=== PATIENT | female | born 1960 | race African-American/Black ===

== ENCOUNTER 2018-04-24 09:45 | Emergency (ER) | payer SELFPAY ==
--- NOTE | 2018-04-24 09:58 | PDOC ---
History of Present Illness - General Chief Complaint: Chest Pain Stated Complaint: FEVER & CHEST PAIN Time Seen by Provider: 04/24/18 09:57 - History of Present Illness Initial Comments: 04/24/18 14:43 Chief complaint: Chest pain History of present illness: Patient complains of heavy feeling in the center of her chest, substernal region, present for the last several days while lying in bed before falling asleep. No radiation of the pain. Patient takes long walks and climb stairs without pain. The pain is not pleuritic and there is no fever or cough. Review of systems: No nausea, vomiting, diarrhea, abdominal pain, URI symptoms, sore throat, cough, urinary tract symptoms, vaginal bleeding or discharge, visual or focal neurologic symptoms, unsteadiness of gait, diaphoresis, lightheadedness, or dizziness. Remainder systems reviewed and found to be negative Past medical history: Patient is a healthy female with no active medical or surgical problems. Social history: Lives in [facility], visiting relatives since January, no tobacco alcohol or nonprescription drugs, no other travel, no exposure to tuberculosis or other known infectious diseases in the past. Family history: Reviewed and noncontributory Physical exam: Alert and oriented well-developed well-nourished no acute distress cheerful and cooperative. Denies pain at present Temperature 100.7, declining to 100.1, remainder vital signs normal PERRLA, fundi benign, ENT clear Neck supple without bruit mass or nodes Chest clear with full breath sounds throughout bilaterally. No wheezes rales or rhonchi. No chest wall or rib cage tenderness or deformity CV S1 and S2 normal without murmur or gallop pulses full and symmetric no JVD or edema no bruits 100 and regular Abdomen soft nontender without mass or organomegaly. No CVAT Neurological intact Extremities no CCE Skin clear, no rash, adequate turgor and wet mucous membranes Impression: Patient is awake from home, missing her family in [place], admits mild anxiety. The chest pain is most likely due to anxiety, especially since it is present only upon lying down to sleep at night. Physical exam is normal. Also low-grade fever is present without any obvious sign of infection. Plan: EKG and enzymes, CBC chemistries, urinalysis, urine culture, blood cultures, and further medical evaluation depending on results Past History - Past Medical History Allergies/Adverse Reactions: Allergies Allergy/AdvReac Type Severity Reaction Status Date / Time No Known Allergies Allergy Verified 04/24/18 09:58 Home Medications: Ambulatory Orders NK [No Known Home Medication] 04/24/18 ED Treatment Course - LABORATORY CBC & Chemistry Diagram: 04/24/18 10:40 04/24/18 10:40 Medical Decision Making - Medical Decision Making 04/24/18 14:49 EKG: Normal Chest x-ray: Clear Urinalysis: 0-2 white cells, 5-8 red cells, positive blood. Urine culture pending. Unlikely that this is an infection. Further urologic evaluation probably necessary CBC and chemistries show normal white blood count, and only significant abnormality is potassium 3.0 High potassium diet recommended To check urine culture in 2 days, and if negative, follow-up with urologist for further evaluation of hematuria No obvious source of fever, no sepsis. Monitor temperature and evaluated again in one week if low-grade fever persists. Fully ambulatory in no pain or other distress upon discharge with son to follow-up as recommended *DC/Admit/Observation/Transfer Diagnosis at time of Disposition: Musculoskeletal pain Hematuria Qualifiers: Hematuria type: unspecified type Qualified Code(s): R31.9 - Hematuria, unspecified - Discharge Dispostion Disposition: HOME Condition at time of disposition: Stable Decision to Admit order: No - Referrals Referrals: Robert Sousa MD [Staff Physician] - - Patient Instructions Printed Discharge Instructions: DI for Atypical Chest Pain, DI for Hematuria, High-Potassium Diet Additional Instructions: There is a small amount of blood in the urine. This could be a sign of infection , or other kidney disease. Check the urine culture which will be available in one to 2 days. If there is no infection, consultation with a kidney specialist or urologist will be necessary to determine the cause of the bloody urine. Pain in the chest does not appear to be related to the heart or lungs. It may be muscular or related to minor nervousness or anxiety. If it persists, consult primary care physician for further evaluation and treatment Potassium is low. Supplement the diet with potassium rich foods. - Post Discharge Activity
[2018-04-24 10:40] LABS: PH,URINE 5.5 (4.5-8); URINE APPEARANCE Clear; URINE BILIRUBIN Negative (NEGATIVE); URINE GLUCOSE (UA) Negative (NEGATIVE); URINE KETONE Negative (NEGATIVE); URINE LEUK ESTERASE Negative (NEGATIVE); URINE NITRITE Negative (NEGATIVE); URINE PROTEIN Trace (NEGATIVE); URINE UROBILINOGEN 0.2 (0.2-1.0)
[2018-04-24 10:42] LABS: URINE BLOOD 2+ (NEGATIVE); URINE COLOR AMBER
[2018-04-24 10:48] VITALS: BMI 25.7
[2018-04-24 11:08] LABS: BASO % 0.2 % (0-2.0); EOS % 0.1 % (0-4.5); HEMATOCRIT 36.9 % (32.4-45.2); HEMOGLOBIN 12.7 GM/dl (10.7-15.3); LYMPH % 10.5 % (8-40); MCH 30.2 pg (25.7-33.7); MCHC 34.5 g/dl (32.0-36.0); MEAN CELL VOLUME 87.7 fl (80-96); MEAN PLT VOLUME 8.8 fl (7.5-11.1); MONO % 9.5 % (3.8-10.2); NEUT % 79.7 % (42.8-82.8); PLATELET COUNT 212 K/MM3 (134-434); RBC 4.21 M/mm3 (3.60-5.2); RDW 13.6 % (11.6-15.6); WHITE BLOOD COUNT 5.5 K/mm3 (4.0-10.8)
[2018-04-24] MEDS ORDERED: SODIUM CHLORIDE 1,000 ML IV STA (11:17)
[2018-04-24 11:26] VITALS: BP 153/80; PULSE 86; TEMP 100.1
[2018-04-24 11:27] LABS: ALBUMIN 3.6 g/dl (3.5-5.0); ALK PHOS 81 U/L (32-92); ANION GAP 11 (8-16); BILIRUBIN,TOTAL 0.8 mg/dl (0.2-1.0); BLOOD UREA NITROGEN 9 mg/dl (7-18); CALCIUM 8.7 mg/dl (8.4-10.2); CHLORIDE 99 mmol/L (98-107); CO2 25 mmol/L (22-28); CREATININE 0.8 mg/dl (0.6-1.3); GLUCOSE,RANDOM 107 mg/dl (74-106); SGOT/AST 55 U/L (10-42); SGPT/ALT 35 U/L (10-40); SODIUM 135 mmol/L (136-145); TOT PROT 6.7 g/dl (6.4-8.3)
[2018-04-24 11:43] LABS: URINE WBC 0-2 (0-5)
--- NOTE | 2018-04-26 17:49 | EKG ---
Test Reason : Blood Pressure : / mmHG Vent. Rate : 103 BPM Atrial Rate : 103 BPM P-R Int : 166 ms QRS Dur : 096 ms QT Int : 348 ms P-R-T Axes : 067 050 042 degrees QTc Int : 455 ms SINUS TACHYCARDIA POSSIBLE LEFT ATRIAL ENLARGEMENT BORDERLINE ECG NO PREVIOUS ECGS AVAILABLE Confirmed by APARNA DELACRUZ, SHAR ([id number]) on 04/26/2018 5:49:14 PM Referred By: BRAYDEN JEFF Confirmed By:SHAR BRAUN MD
--- NOTE | 2018-04-26 23:18 | PDOC ---
Patient Follow-up (Call Back) - Post ED Follow - Up Condition at time of discharge: Stable Disposition at time of original discharge: HOME - Disposition Additional Instructions/Notes: Message was left at patient's callback number ([phone]) by earlier today to call back for lab results. Urine culture and sensitivity was found to have no growth. Discharge instructions for patient was for the patient to follow-up with urologist if the culture and sensitivity of the urine was negative. Approximately one half hour after message was left (approximately 7: 30 PM) patient's son returned call. Lab result discussed with the son. Since the [place] and does not have any insurance, son will apply for insurance and follow-up with urologist as per your insurance plan. If there is any interim problems, the patient should return to the ER.
== END 2018-04-24 12:06 | disposition home or self-care (01) ==
LOC: FER 09:45
CPT/HCPCS: 36415; 71046-TC-FY; 80053; 81003; 81015; 82550; 84484; 85025; 87040; 87086; 93005; 99284-25; J7030

== ENCOUNTER 2018-06-14 12:17 | Emergency (ER) | payer SELFPAY ==
--- NOTE | 2018-06-14 12:26 | PDOC ---
History of Present Illness - General Chief Complaint: Pain, Acute Stated Complaint: r wrist pain x 2 mnths Time Seen by Provider: 06/14/18 12:25 Past History - Past Medical History Allergies/Adverse Reactions: Allergies Allergy/AdvReac Type Severity Reaction Status Date / Time No Known Allergies Allergy Verified 06/14/18 12:18 Home Medications: Ambulatory Orders NK [No Known Home Medication] 04/24/18 COPD: No DVT: No Dementia: No Other medical history: denies - Suicide/Smoking/Psychosocial Hx Smoking History: Never smoked Hx Alcohol Use: No Drug/Substance Use Hx: No Substance Use Type: None *Physical Exam - Vital Signs Last Vital Signs Temp Pulse Resp BP Pulse Ox 98 F 74 19 154/67 100 06/14/18 12:18 06/14/18 12:18 06/14/18 12:18 06/14/18 12:18 06/14/18 12:18 *DC/Admit/Observation/Transfer - Discharge Dispostion Condition at time of disposition: Stable - Referrals - Patient Instructions - Post Discharge Activity
--- NOTE | 2018-06-14 12:30 | PDOC ---
Attending Attestation - Resident Resident Name: SofiaNilda - ED Attending Attestation I have performed the following: I have examined & evaluated the patient, The case was reviewed & discussed with the resident, I agree w/resident's findings & plan, Exceptions are as noted - HPI HPI: 57 yo F no significant PMH presents with R thumb pain worse with use of her hand , particularly when she is cooking. No swelling, redness, rash, fever, skin lesions. No prior similar symptoms in the past. No recent trauma. - Physicial Exam PE: GENERAL: Awake, alert, and fully oriented, in no acute distress HEAD: No signs of trauma EYES: PERRLA, EOMI, sclera anicteric, conjunctiva clear ENT: Auricles normal inspection, hearing grossly normal, nares patent, oropharynx clear without exudates. Moist mucosa NECK: Normal ROM, supple, no lymphadenopathy, JVD, or masses LUNGS: Breath sounds equal, clear to auscultation bilaterally. No wheezes, and no crackles HEART: Regular rate and rhythm, normal S1 and S2, no murmurs, rubs or gallops ABDOMEN: Soft, nontender, normoactive bowel sounds. No guarding, no rebound. No masses MUSCULOSKELETAL: R hand with tenderness at the base of the thumb, no erythema, no swelling, no skin changes. Remainder of extremities with normal range of motion, no edema. No clubbing or cyanosis. No cords, erythema, or tenderness. NEUROLOGICAL: Cranial nerves II through XII grossly intact. Normal speech, normal gait SKIN: Warm, Dry, normal turgor, no rashes or lesions noted. - Medical Decision Making Symptoms c/w tenosynovitis. [place], will have difficulty obtaining follow-up for possible injection. The symptoms are mild to moderate at present. Will give a medrol dose denise, splint in a thumb spica.
[2018-06-14 12:35] VITALS: BP 154/67; PULSE 74; TEMP 98; BMI 24.0
--- NOTE | 2018-06-14 13:16 | PDOC ---
History of Present Illness <Barbara Gudino - Last Filed: 06/14/18 13:26> - History of Present Illness Initial Comments: 57 year old w/o medical history who presents with 2 months of R wrist pain that occurs when using the wrist primarily when cooking. The patient recently immigrated from [place]. She denies any repetitive activities such as excess typing and gardening. The patient denies fever, radiation of pain up the arm, weakness or numbness or tingling. The patient denies any other complaints at bedside. PMHX: none PSHX: none Meds: none Allergies: none Tob: none Etoh: none Rec drugs: none <Nilda Black - Last Filed: 06/14/18 15:14> - General Chief Complaint: Pain, Acute Stated Complaint: r wrist pain x 2 mnths Time Seen by Provider: 06/14/18 12:25 Past History <Barbara Gudino - Last Filed: 06/14/18 13:26> - Past Medical History COPD: No DVT: No Dementia: No Other medical history: denies - Suicide/Smoking/Psychosocial Hx Smoking History: Never smoked Hx Alcohol Use: No Drug/Substance Use Hx: No Substance Use Type: None <Nilda Black - Last Filed: 06/14/18 15:14> - Past Medical History Allergies/Adverse Reactions: Allergies Allergy/AdvReac Type Severity Reaction Status Date / Time No Known Allergies Allergy Verified 06/14/18 12:18 Home Medications: Ambulatory Orders Methylprednisolone [Medrol Dose Lenny] 4 mg PO ASDIR #21 tablet 06/14/18 Review of Systems - Review of Systems Able to Perform ROS?: Yes Is the patient limited Senegalese proficient: No Constitutional: No: Chills, Diaphoresis, Fever Respiratory: No: Shortness of Breath Cardiac (ROS): No: Chest Pain ABD/GI: No: Nausea, Vomiting Musculoskeletal: No: Joint Swelling, Muscle Weakness, Joint Stiffness Neurological: No: Numbness, Paresthesia, Tingling, Tremors, Weakness <Nilda Black - Last Filed: 06/14/18 15:14> *Physical Exam - Vital Signs Last Vital Signs Temp Pulse Resp BP Pulse Ox 98 F 74 19 154/67 100 06/14/18 12:18 06/14/18 12:18 06/14/18 12:18 06/14/18 12:18 06/14/18 12:18 <Barbara Gudino - Last Filed: 06/14/18 13:26> - Vital Signs Last Vital Signs Temp Pulse Resp BP Pulse Ox 98 F 74 19 154/67 100 06/14/18 12:18 06/14/18 12:18 06/14/18 12:18 06/14/18 12:18 06/14/18 12:18 <Nilda Black - Last Filed: 06/14/18 15:14> Procedures - Splinting Splint Location: Right: Hand, Wrist Pre-Proc Neuro Vasc Exam: normal Hand-Made Type: orthoglass Splint Type: Yes: Thumb Spica Post-Proc Neuro Vasc Exam: normal Kadeem Bandage: 3" Complications: No <Barbara Gudino - Last Filed: 06/14/18 13:26> Medical Decision Making - Medical Decision Making 57 year old w/o medical history who presents with 2 months of R wrist pain that occurs when using the wrist primarily when cooking. The patient's symptoms and history are most consistent with de Quervain tendinopathy vs intersection syndrome vs radial sensory nerve entrapment vs carpal tunnel syndrome. The patient is placed in a spica splint and given instruction to establish primary care and follow up for steroid injection if desired. The patient is stable for discharge and given Rx for medrol dose lenny. <Nilda Black - Last Filed: 06/14/18 15:14> *DC/Admit/Observation/Transfer <Barbara Gudino - Last Filed: 06/14/18 13:26> - Discharge Dispostion Decision to Admit order: No <Nilda Black - Last Filed: 06/14/18 15:14> Diagnosis at time of Disposition: Tenosynovitis of hand - Discharge Dispostion Disposition: HOME Condition at time of disposition: Stable - Prescriptions Prescriptions: Methylprednisolone [Medrol Dose Lenny] 4 mg PO ASDIR #21 tablet - Referrals Referrals: [facility] [place] [Provider Group] - Patient Instructions Printed Discharge Instructions: DI for Tenosynovitis Additional Instructions: You were seen in the ED for R wrist pain. You were evaluate and treated with a splint in the ED and given a prescription for steroid medications for treatment of inflammation. You are advised to establish a primary care physician and follow up within 1 week. Return to the ED if your symptoms worsen, you experience numbness and tingling in the wrist, fevers, nausea or redness and swelling around the joint. - Post Discharge Activity
== END 2018-06-14 13:20 | disposition home or self-care (01) ==
LOC: FER 12:17
PROC: 2W3CX1Z Immobilization of Right Lower Arm using Splint (ICD-10-PCS; principal; 2018-06-14)
DX: M65.841 Other synovitis and tenosynovitis, right hand (principal)
CPT/HCPCS: 99282-25